=== PATIENT | male | born 1965 | race African-American/Black ===

== ENCOUNTER 2023-02-19 22:05 | Emergency (ER) | payer SELFPAY ==
[~2023-02-19] VITALS: Ht 185.4 cm; Wt 81.6 kg
[2023-02-19 22:11] VITALS: O2SAT 97
[2023-02-19] MEDS ORDERED: TAMSULOSIN HCL 0.4 MG CAP.SR.24H PO ONE (23:15)
[2023-02-19] MEDS ORDERED: TAMSULOSIN HCL 0.4 MG CAP.SR.24H ONE (23:25)
[2023-02-19 23:26] LABS: *BILIRUBIN,URIN NEGATIVE (NEGATIVE); *BLOOD, URINE 2+ (NEGATIVE); *CLARITY,URINE CLEAR (CLEAR); *KETONES,URINE NEGATIVE (NEGATIVE); *PROTEIN,URINE NEGATIVE (NEGATIVE); *UROBILINOGEN,URINE 0.2 E.U./dl (NORMAL); LEUKOCYTE ESTERASE ,URINE NEGATIVE (NEGATIVE); NITRITE, URINE NEGATIVE (NEGATIVE); PH,URINE 5.5 (5.0-8.0); UGLUCOSE NEGATIVE (NEGATIVE)
[2023-02-19 23:28] LABS: *COLOR,URINE LIGHT YELLOW (YELLOW)
[2023-02-19 23:53] LABS: RBC,URINE 0-3 /HPF (0-3); WBC,URINE NONE SEEN /HPF (0-3)
[2023-02-19 23:54] LABS: BACTERIA,URINE FEW /HPF (NONE SEEN); SQUAMOUS EPITHELIAL CELL,UR FEW /HPF (NONE SEEN)
[2023-02-20] MEDS ORDERED: TAMS-3 PO (00:40)
[2023-02-20 00:47] VITALS: BP 139/75
== END 2023-02-20 00:50 | disposition home or self-care (01) ==
LOC: ER 22:05
DX: R33.9 Retention of urine, unspecified (principal); N40.0 Benign prostatic hyperplasia without lower urinary tract symptoms; Z79.899 Other long term (current) drug therapy
CPT/HCPCS: 51702; A4663; C1758